=== PATIENT | female | born 1955 | race Caucasian/White ===

== ENCOUNTER → 2021-05-28 | Outpatient (CLI) | payer MEDICARE ==
[2021-05-28 15:05] LABS: TROPONIN-I 0.016 ng/mL (0.00-0.033)
[2021-05-28 15:06] LABS: THYROID STIMULATING HORMONE 0.973 uIU/mL (0.350-4.940)
== END ==
LOC: ZCOL.LAB 14:50
PROVIDERS: Nurse Practitioner
DX: R06.02 Shortness of breath (principal); I48.91 Unspecified atrial fibrillation; R00.2 Palpitations

== ENCOUNTER 2021-09-14 11:24 | Day surgery (SDC) | payer OTHER, MEDICARE ==
[2021-09-14] VITALS (10 sets, daily range): BP systolic 108–130; BP diastolic 54–79; PULSE 65–75; TEMP 98.2
[~2021-09-14] VITALS: Ht 170.2 cm; Wt 117.0 kg
[2021-09-14 13:24] LABS: HEMATOCRIT 41.3 % (37.0-47.0); HEMOGLOBIN 13.9 g/dl (12.5-16.0); MEAN CELL VOLUME 92 fl (80.0-100.0); MEAN CORPUSCULAR HEMOGLOBIN 31 pg (27-31); MEAN CORPUSCULAR HGB CONC 34 g/dl (33.0-37.0); MEAN PLATELET VOLUME 9.7 fl (7.4-10.4); PLATELET COUNT 198 K/mm3 (130-400); RED BLOOD COUNT 4.47 M/mm3 (4.10-5.30); REDCELL DISTRIBUTION WIDTH-CV 13.8 % (11.5-14.5)
[2021-09-14 13:37] LABS: CREATININE, serum 0.83 mg/dL (0.57-1.11); POTASSIUM 4.2 mmol/L (3.5-4.5)
[2021-09-14 13:43] LABS: INR 1.2 (0.8-3.0); PROTHROMBIN TIME 13.4 SECONDS (9.7-12.8)
--- NOTE | 2021-09-14 13:59 | NUR ---
SEE MERGE FOR ALL MEDICATION ADMINISTRATION TIMES/DOSAGES AND INTRA/POST PROCEDURE SEDATION ASSESSMENTS.
--- NOTE | 2021-09-14 14:30 | NUR ---
Pt back to [facility] after heart cath. BS report from [facility]. Pt is awake and alert, pwd, resp reg and unlabored. TR band to rt wrist. cms intact. SR on monitor. lunch ordered, call light in reach.
[2021-09-14] MEDS ORDERED: SYSTANE 0.4%-0.1 SOL OP (14:34)
[2021-09-14] MEDS ORDERED: FLONASEALLERGY NS (14:34)
[2021-09-14] MEDS ORDERED: EPA FISH OIL1 SGL PO (14:36)
[2021-09-14] MEDS ORDERED: THE MEDICINE S200 M2 PO (14:36)
[2021-09-14] MEDS ORDERED: MASON NATURAL2000 IU PO (14:37)
[2021-09-14] MEDS ORDERED: MULTI VITAMINS1 TAB PO (14:38)
[2021-09-14] MEDS ORDERED: PROBIOTIC BLEN1 EACH PO (14:38)
[2021-09-14] MEDS ORDERED: CYMBALTA 60MG60 MG PO (14:39)
[2021-09-14] MEDS ORDERED: SYNTHROID0.1 MG/TAB PO (14:40)
[2021-09-14] MEDS ORDERED: SYNTHROID0.088 MG/T PO (14:40)
[2021-09-14] MEDS ORDERED: XYZAL5 MG PO (14:41)
[2021-09-14] MEDS ORDERED: CRESTOR 10MG10 MG PO (14:41)
[2021-09-14] MEDS ORDERED: ELIQUIS 5MG PO (14:42)
[2021-09-14] MEDS ORDERED: ENTRESTO 24 MG1 EACH PO (14:42)
[2021-09-14] MEDS ORDERED: TOPROL XL 25MG25 MG PO (14:45)
[2021-09-14] MEDS ORDERED: ENTRESTO 49 MG1 EACH PO (15:16)
--- NOTE | 2021-09-14 17:30 | NUR ---
Pt has done well during her recovery. She has eaten lunch, has been up and amb with steady gait. TR band was deflated without incident, and site is dressed with bandaid, folded 2x2 adn coban. IV is dc'd with cath intact, dressing applied. I discussed dc/fu and rx instructions with pt who verbalized understanding. Pt is escorted to exit at this time via wheelchair.
== END 2021-09-14 18:09 | disposition home or self-care (01) ==
LOC: COL.CAR 11:24
PROVIDERS: Internal Medicine Interventional Cardiology
DX: I48.0 Paroxysmal atrial fibrillation (principal); I50.20 Unspecified systolic (congestive) heart failure; I11.0 Hypertensive heart disease with heart failure; E03.9 Hypothyroidism, unspecified; Z79.890 Hormone replacement therapy; Z86.718 Personal history of other venous thrombosis and embolism; Z79.01 Long term (current) use of anticoagulants; Z86.73 Personal history of transient ischemic attack (TIA), and cerebral infarction without residual deficits; Z79.899 Other long term (current) drug therapy
CPT/HCPCS: J1644; J2250; J3010; Q9967